=== PATIENT | female | born 1965 | race Native Hawaiian/Other Pacific Islander ===

== ENCOUNTER 2017-06-19 08:10 | Outpatient (CLI) | payer OTHER | END 2017-06-19 19:06 | disposition home or self-care (01) | LOC: MAMMO 08:10 | DX: Z12.31 Encounter for screening mammogram for malignant neoplasm of breast (principal) ==

== ENCOUNTER 2017-09-04 11:03 | Outpatient (CLI) | payer OTHER | END 2017-09-04 18:58 | disposition home or self-care (01) | LOC: RAD 11:03 | DX: R22.0 Localized swelling, mass and lump, head (principal); R22.1 Localized swelling, mass and lump, neck ==